=== PATIENT | female | born 1980 | race Caucasian/White ===

== ENCOUNTER 2016-12-17 13:52 | Day surgery (SDC) | payer OTHER ==
[2016-12-17] VITALS (10 sets, daily range): BP systolic 99–129; BP diastolic 50–85; PULSE 51–77; RESP 18–28; Ht 175.3 cm; Wt 62.0 kg
[~2016-12-17] VITALS: Ht 175.3 cm; Wt 62.0 kg
[~2016-12-17 13:52] MED LIST: VITAMINS
[2016-12-17] MEDS ORDERED: PROPOFOL 20 ML ONE (17:11)
[2016-12-17] MEDS ORDERED: GLYCOPYRROLATE 0.4 MG INJ ONE ×2 (17:11→17:41)
[2016-12-17] MEDS ORDERED: NEOSTIGMINE 3 MG/3 ML SYRINGE ONE (17:11)
[2016-12-17] MEDS ORDERED: SUCCINYLCHOLINE CHLORIDE 100 MG/5 ML SYG IV ONE (17:11)
[2016-12-17] MEDS ORDERED: ROCURONIUM 50 MG INJ ONE (17:11)
[2016-12-17] MEDS ORDERED: LIDOCAINE 2% (SDV) 5 ML INJ ONE (17:11)
[2016-12-17] MEDS ORDERED: DEXAMETHASONE 4 MG/ML 1 ML INJ ONE (17:14)
[2016-12-17] MEDS ORDERED: ONDANSETRON 4 MG INJ ONE (17:18)
--- NOTE | 2016-12-17 17:45 | HPN ---
Date/Time of Note Date/Time of Note DATE: 12/17/16 TIME: 17:45 Interval H&P Admission Note Pt. seen H&P reviewed: No system changes JOSE SOLOMON MD Dec 17, 2016 17:45
--- NOTE | 2016-12-17 17:47 | OPR ---
Date/Time of Note Date/Time of Note DATE: 12/17/16 TIME: 17:45 Operative Report Procedure Date: Dec 17, 2016 Preoperative Diagnosis Chronic tonsillitis. Postoperative Diagnosis Same Operation Performed Tonsillectomy Surgeon: JOSE SOLOMON MD Anesthesia: general Estimated Blood Loss: minimal Specimens Tonsils Complications: None Pt Condition Post Procedure: stable Disposition: PACU Indications Chronic infections. Operative\Procedure Findings Symmetric. Procedure Description Description of procedure: The patient was identified in the holding area. We had a discussion to confirm understanding of all indications risks benefits alternatives and postoperative care associated with the operation. The patient signed informed consent was taken to the operating room. The patient was laid supine on the operating room table and general anesthesia was achieved without difficulty. The face was draped in sterile fashion. A McIvor mouth gag was placed and used to retract the oral cavity open, taking care to avoid damage to the teeth. The oral cavity and pharynx were inspected and palpated to reveal symmetric tonsils. At this point the right palatine tonsil was grabbed superiorly with a curved Ana clamp. It was retracted medially and monopolar cautery was used to enter the peritonsillar space. Dissection of the tonsil commenced in a superior to inferior fashion until it was completely resected. Suction Bovie cautery was used for spot hemostasis. At this point, the contralateral tonsil was removed in the exact similar fashion. There was no significant bleeding or oozing. Copious irrigation and suctioning was performed. Secondary inspection revealed no bleeding or oozing. The patient was awakened, extubated and taken to the PACU in stable condition. Complications: None JOSE SOLOMON MD Dec 17, 2016 17:47
[2016-12-17] MEDS: FENTAnyl 50 MCG/ML VIAL IV PRN ×2 (17:56→18:03)
[2016-12-17] MEDS ORDERED: FENTAnyl 50 MCG/ML VIAL IV PRN (18:00)
[2016-12-17] MEDS ORDERED: ONDANSETRON 4 MG INJ IV PRN (18:00)
[2016-12-17] MEDS ORDERED: METOCLOPRAMIDE 10 MG INJ IV PRN (18:00)
[2016-12-17] MEDS ORDERED: HYDROCODONE/APAP (5/325) TAB PO PRN (18:00)
[2016-12-17] MEDS ORDERED: DIPHENHYDRAMINE 50 MG INJ IV PRN (18:00)
[2016-12-17] MEDS ORDERED: HYDROmorphONE (0.2 MG/ML) 10ML SYG IV PRN ×2 (18:00)
[2016-12-17] MEDS ORDERED: MEPERIDINE 25 MG INJ IV PRN (18:00)
[2016-12-17] MEDS ORDERED: MIDAZOLAM 1 MG/ML 2 ML INJ IV PRN (18:00)
== END 2016-12-17 18:45 | disposition home or self-care (01) ==
LOC: SDS 13:52
PROVIDERS: ATTEND Otolaryngology
DX: J35.01 Chronic tonsillitis (principal)
CPT/HCPCS: 42826; 88304; J0330; J1100; J2405; J3010; Z7512; Z7610; J2710